=== PATIENT | female | born 1980 | race Caucasian/White ===

== ENCOUNTER → 2022-05-25 13:54 | Outpatient (CLI) | payer BC, SELFPAY ==
--- NOTE | ~2022-05-25 | MM_ITS ---
EXAMINATION: MM screening cyn BI w milton HISTORY: Screening mammogram. Baseline examination. TECHNIQUE: Craniocaudal and mediolateral oblique 3-D tomosynthesis images were obtained and synthetic 2-D images were generated. Bilateral rotated lateral CC views. CAD analysis was submitted and interp reted. COMPARISON: No prior mammogram is available for comparison at this institution. BREAST PARENCHYMAL COMPOSITION: The breasts are heterogeneously dense, which may obscure small masses . FINDINGS: There is no evidence of suspicious mass, calcification, or architectural distortion to sugg est malignancy in either breast. There has been no suspicious interval change. IMPRESSION: 1. No mammographic evidence of malignancy. 2. Recommend routine screening mammography in one year. BI-RADS Category 1: Negative Reviewed, dictated and finalized at location [facility].
== END ==
PROVIDERS: PCP Nurse Practitioner; Visit Provider Nurse Practitioner
DX: Z12.31 Encounter for screening mammogram for malignant neoplasm of breast (principal)
CPT/HCPCS: 77063; 77067

== ENCOUNTER 2023-12-23 11:03 | Emergency (ER) | payer BC, SELFPAY ==
--- NOTE | 2023-12-23 11:30 | ED.URI ---
HPI - URI/Sore Throat General Chief Complaint: Upper Respiratory Infection Stated Complaint: Sore Throat/Ear Pain Time Seen by Provider: 12/23/23 11:30 Source: patient Mode of arrival: ambulatory Limitations: no limitations History of Present Illness HPI Narrative: Gopi is a 43-year-old female patient presenting to the clinic today with complaints of right-sided sore throat ear pain. She reports this started over the last 1-2 days. Denies any fever or chills. Denies any URI symptoms. States the pain is worse with movement of the jaw/eating MD elicited complaint: sore throat and other (ear pain) Related Data Home Medications Medication Instructions Recorded Confirmed medroxyprogesterone 150 mg/mL 150 mg IM [id number] 12/23/23 12/23/23 intramuscular syringe Allergies Allergy/AdvReac Type Severity Reaction Status Date / Time No Known Allergies Allergy Verified 12/23/23 11:30 Review of Systems Review of Systems: Pertinent positives per HPI. Patient denies any fever, chills, rash, headache, visual changes, dizziness, cough, shortness of breath, chest pain, palpitations, nausea, vomiting, diarrhea, constipation, abdominal pain, or any urinary issues. PMFSH Comments At the time of my signature, I reviewed and agree with the nursing past medical, surgical, social, and family history. There is no relevant family history pertinent to the patient complaint. Exam Narrative: General: Well-developed, well nourished, in no apparent distress Head: Normocephalic, atraumatic Eyes: Pupils equally round and reactive to light bilaterally, EOM intact, sclera and conjunctive clear, no discharge, lids normal Ears: TMs intact and clear, ear canals clear, no drainage, grossly hearing normal. Nose: Nares patent, no discharge, no inflammation, no sinus tenderness. Mouth: Oral pharynx- oral ulcer noted to the back of the right oropharynx , good dentition, MMM. Neck: Supple, trachea midline, no enlargement of anterior or posterior cervical nodes, no thyroid masses or goiter palpable. Cardio: Regular rate and rhythm, s1 and s2 normal, no murmur appreciated. Resp: Clear to auscultation bilaterally, no rhonchi, rales, wheezing or rubs Course Course Emergency Course: Portions of this record may have been created with voice recognition software. Level of Care: Express Care Visit Vital Signs Vital signs: Vital signs reviewed MDM - URI/Sore Throat MDM Narrative Medical decision making narrative: At the time of visit patient is resting comfortably on the exam table. Patient appears to be nontoxic. Labs: Strep test was negative in the clinic today. We will send for culture. Plan: I suspect patient has an oral lesion/ulcer to the right posterior oropharynx. No obvious sign of bacterial infection. Will place on Magic mouthwash and have her follow-up with her PCP if symptoms persist. Supportive measures were discussed with the patient and they voiced understanding discharge instructions and agrees to treatment plan. Return precautions reviewed Differential Diagnosis Differential diagnosis: Likely upper respiratory infection, otitis media, sinusitis, viral infection, bronchitis, influenza, pharyngitis and other (COVID) Discharge Plan Discharge Clinical Impression: Oral ulcer Patient Disposition: Home, Self-Care Condition: Stable Instructions: Antibiotic Form, Gingivostomatitis (ED) Additional Instructions: Strep test was negative in the clinic today. We will send strep for culture if this comes back positive we will contact him place you on antibiotics at that time. No sign of bacterial infection I suspect you have an oral ulcer. Prescription for Magic mouthwash was sent to the pharmacy-take as directed May take Tylenol/Motrin as needed for pain as well Follow-up with your primary care in 1 week if symptoms persist Prescriptions: New Magic Mouthwash (Dr. Hansen) 120 mL suspension 5 ml PO QID PRN (Reason: mouth pain) 7 Days Qty: 120 1RF Rx Instructions: diphenhydramine 12.5 mg/5 mL oral elixir 40 mL; Lidocaine Viscous 2 % mucosal solution 40 mL; Maalox 200 mg-200 mg-20 mg/5 mL oral suspension 40 mL; Per 120 mL No Action medroxyprogesterone 150 mg/mL syringe 150 mg IM [id number] Follow-up/Referrals: PHYSICIAN,MATERIAL RECLAIMER [Primary Care Provider] - Time of Disposition: 11:54 Quality NIHSS Nursing Documentation ED NIHSS nursing documentation: reviewed/agree
[2023-12-23 11:43] LABS: EDSTREPNEGPOS1 Negative (Negative)
[2023-12-23 12:13] VITALS: BP 115/84; PULSE 97; RESP 16; TEMP 36.8; O2SAT 99
== END 2023-12-23 11:54 | disposition home or self-care (01) ==
PROVIDERS: Emergency Provider Nurse Practitioner Family
DX: K12.1 Other forms of stomatitis (principal)
CPT/HCPCS: 87081; 87880; 99213; G0463

== ENCOUNTER 2024-03-23 09:11 | Emergency (ER) | payer BC, SELFPAY ==
[2024-03-23 09:27] VITALS: BP 116/78; PULSE 81; RESP 16; TEMP 36.6; O2SAT 100
--- NOTE | 2024-03-23 09:32 | ED_ITS ---
HPI - Ear Problem General Chief complaint: Ear Stated complaint: EARACHE Time Seen by Provider: 03/23/24 09:32 Source: patient Mode of arrival: ambulatory Limitations: no limitations History of Present Illness HPI Narrative: 43-year-old female presents with complaint of right ear pain starting last night. Patient reports she had influenza last week. Continues to have mild congestion. Taking Zyrtec. Afebrile. All systems reviewed and negative except as noted above. Related Data Home Medications ?Medication ?Instructions ?Recorded ?Confirmed ?Last Taken ?Type medroxyprogesterone 150 mg/mL 150 mg IM [id number] 12/23/23 12/23/23 Unknown History intramuscular syringe Allergies Allergy/AdvReac Type Severity Reaction Status Date / Time No Known Allergies Allergy Verified 12/23/23 11:30 Review of Systems Review of Systems: CONSTITUTIONAL: Denies fever, chills, or sweats. EYES: Denies visual changes, redness, or discharge. ENT: Reports rhinorrhea, congestion, right ear pain. Denies sore throat CARDIOVASCULAR: Denies chest pain, palpitations, or edema. RESPIRATORY: Denies cough or dyspnea. GASTROINTESTINAL: Denies abdominal pain, nausea, vomiting, or diarrhea. GENITOURINARY: Denies dysuria or hematuria. SKIN: Denies rash or itching. MUSCULOSKELETAL: Denies back pain, joint pain, or myalgia. NEUROLOGIC: Denies headache, numbness, or weakness. PSYCHIATRIC: Denies anxiety or depression. All other systems reviewed are negative, except as documented in HPI. PMFSH Comments At time of signature, agree with nursing past medical, surgical, social and family history. There is no relevant family history pertinent to the presenting complaint. Exam Narrative: GENERAL: This is a well-nourished, well-developed patient, in no apparent distress. HEAD: normocephalic, atraumatic. EYES: PERRL. Sclera clear/white. Vision is grossly intact. EARS: External ears normal, auditory canals clear and without drainage, right TM erythematous with fluid. Left TM normal. No perforation bilaterally. Hearing grossly intact. NOSE: External nose normal with no obvious nasal discharge, nares without redness, no rhinorrhea. THROAT: Mucous membranes moist, posterior pharynx clear. NECK: Neck supple, non-tender without lymphadenopathy, masses or thyromegaly. CARDIOVASCULAR: Regular rate and rhythm without murmurs, gallops, or rubs. RESPIRATORY: Clear to auscultation. Breath sounds equal bilaterally. No wheezes, rales, or rhonchi. SKIN: warm, Dry, intact with no suspicious lesions or rash, good texture and turgor. NEURO: awake, alert, and oriented to person, place and time. There were no obvious focal neurologic abnormalities. EXTREMITIES: No joint tenderness, effusion, or edema noted. Course Course Level of Care: Express Care Visit Vital Signs Vital signs: Vital Signs Temperature 36.6 C 03/23/24 09:27 Pulse Rate 81 03/23/24 09:27 Respiratory Rate 16 03/23/24 09:27 Blood Pressure 116/78 03/23/24 09:27 Pulse Oximetry 100 03/23/24 09:27 Temperature 36.6 C 03/23/24 09:27 Pulse Rate 81 03/23/24 09:27 Respiratory Rate 16 03/23/24 09:27 Blood Pressure 116/78 03/23/24 09:27 Pulse Oximetry 100 03/23/24 09:27 Reviewed Medical Decision Making MDM Narrative Medical decision making narrative: Please be advised this is a medical document. It is intended for [id number] c ommunication. It is written in medical language and may contain unfamiliar abbreviations or verbiage. Medical documents are intended to carry relevant information, facts as evident, and the clinical opinion of the practitioner at the time of the encounter. This report may have been done utilizing a voice recognition system. Attempts have been made to correct errors. However, there may be uncorrected grammatical, spelling, and recognition errors present. The file time of this note does not necessarily represent the time of service. Vital Signs Vital Signs: Vital Signs Temperature 36.6 C 03/23/24 09:27 Pulse Rate 81 03/23/24 09:27 Respiratory Rate 16 03/23/24 09:27 Blood Pressure 116/78 03/23/24 09:27 Pulse Oximetry 100 03/23/24 09:27 Temperature 36.6 C 03/23/24 09:27 Pulse Rate 81 03/23/24 09:27 Respiratory Rate 16 03/23/24 09:27 Blood Pressure 116/78 03/23/24 09:27 Pulse Oximetry 100 03/23/24 09:27 Discharge Plan Discharge Clinical Impression: Acute right otitis media Patient Disposition: Home, Self-Care Condition: Stable Instructions: Antibiotic Form, Ear Infection (ED) Additional Instructions: Take antibiotic as prescribed until gone. Take ibuprofen or Tylenol every 6-8 hours as needed for pain. Continue [id number] Zyrtec daily. Follow-up with your primary care physician if pain is not improving. Patient Language: Icelandic Prescriptions: New amoxicillin 875 mg tablet 875 mg PO Q12H 10 Days Qty: 20 0RF No Action medroxyprogesterone 150 mg/mL syringe 150 mg IM [id number] Magic Mouthwash (Dr. Hansen) 120 mL suspension 5 ml PO QID PRN (Reason: mouth pain) 7 Days Qty: 120 1RF Rx Instructions: diphenhydramine 12.5 mg/5 mL oral elixir 40 mL; Lidocaine Viscous 2 % mucosal solution 40 mL; Maalox 200 mg-200 mg-20 mg/5 mL oral suspension 40 mL; Per 120 mL Follow-up/Referrals: PHYSICIAN,[employer]CO ACREAGE MEASURER [Primary Care Provider] - Time of Disposition: 09:36
== END 2024-03-23 09:39 | disposition home or self-care (01) ==
PROVIDERS: Emergency Provider Nurse Practitioner Family
DX: H66.91 Otitis media, unspecified, right ear (principal)
CPT/HCPCS: 99213; G0463

== ENCOUNTER 2024-03-29 10:47 | Outpatient (CLI) | payer BC, SELFPAY ==
--- NOTE | ~2024-03-29 | MM_ITS ---
EXAMINATION: MM screening cyn BI w milton HISTORY: Screening TECHNIQUE: Craniocaudal and mediolateral oblique 3-D tomosynthesis images were obtained and synthetic 2-D images were generated. CAD analysis was submitted and interpreted. COMPARISON: 05/25/2022 BREAST PARENCHYMAL COMPOSITION: Dense: The breasts are extremely dense, which lowers the sensitivity of mammography. FINDINGS: There is no evidence of suspicious mass, calcification, or architectural distortion to sugg est malignancy in either breast. There has been no suspicious interval change. IMPRESSION: 1. No mammographic evidence of malignancy. 2. Recommend routine screening mammography in one year. BI-RADS Category 1: Negative Reviewed, dictated and finalized at location B. [employer]
== END 2024-03-29 10:48 | disposition home or self-care (01) ==
LOC: MICIMG 10:47
PROVIDERS: PCP Nurse Practitioner; Visit Provider Nurse Practitioner
DX: Z12.31 Encounter for screening mammogram for malignant neoplasm of breast (principal)
CPT/HCPCS: 77063; 77067